=== PATIENT | male | born 1975 | race African-American/Black ===

== ENCOUNTER 2017-05-23 21:53 | Observation (INO) | payer MEDICAID, OTHER ==
[2017-05-23] MEDS: LORAZEPAM 2 MG INJ IV (22:33)
[2017-05-23 22:37] LABS: ADD MAN DIFF? NO
[2017-05-23 22:38] LABS: WHITE BLOOD COUNT 5.7 10^3/ul (4.8-10.8)
[2017-05-23 22:38] LABS: BASOPHILS % 0.7 % (0.0-2.0); EOSINOPHILS % 0.4 % (0.0-7.0); HEMATOCRIT 45.1 % (42.0-52.0); HEMOGLOBIN 15.1 g/dl (14.0-18.0); LYMPHOCYTES # 1.2 10^3/ul (0.8-2.9); LYMPHOCYTES % 21.7 % (15.0-51.0); MEAN CORPUSCULAR HEMOGLOBIN 27.9 pg (29.0-33.0); MEAN CORPUSCULAR HGB CONC 33.5 g/dl (32.0-37.0); MEAN CORPUSCULAR VOLUME 83.4 fl (82.0-101.0); MONOCYTE # 0.5 10^3/ul (0.3-0.9); MONOCYTES % 8.4 % (0.0-11.0); NEUTROPHIL # 3.9 10^3/ul (1.6-7.5); NEUTROPHILS % 68.4 % (39.0-77.0); PLATELET COUNT 353 10^3/UL (140-415); RED BLOOD COUNT 5.41 10^6/ul (4.70-6.10); RED CELL DISTRIBUTION WIDTH 14.6 % (11.5-14.5)
[2017-05-23 22:55] LABS: ANION GAP 20 (8-16); BLOOD UREA NITROGEN 15 mg/dl (7-20); CALCIUM 9.4 mg/dl (8.4-10.2); CARBON DIOXIDE 22 mmol/L (21-31); CHLORIDE 101 mmol/L (97-110); CREATININE 1.03 mg/dl (0.61-1.24); GLUCOSE 258 mg/dl (70-220); POTASSIUM 4.6 mmol/L (3.5-5.1); SODIUM 138 mmol/L (135-144)
[2017-05-23] MEDS: morphine 10 MG INJ IV (23:00)
[2017-05-23 23:07] LABS: TROPONIN-I 0.036 ng/ml (0.00-0.12)
[2017-05-24] MEDS: LORAZEPAM 2 MG INJ IV ×3 (00:24→12:40)
[2017-05-24] MEDS: SOD CHLORIDE 0.9% 1,000 ML IV ×2 (00:24→04:12)
[2017-05-24] MEDS: ASPIRIN 81 MG TAB PO (01:14)
[2017-05-24] MEDS: OXYCODONE/ACETAMINOPHEN (5/325) TAB PO (01:14)
[2017-05-24] MEDS ORDERED: ONDANSETRON 4 MG INJ IV ×2 (01:30→02:00)
[2017-05-24] MEDS ORDERED: BISACODYL (EC) 5 MG TAB PO (01:30)
[2017-05-24] MEDS ORDERED: NACL 0.9% 3 ML SYG IV (01:30)
[2017-05-24] MEDS ORDERED: ACETAMINOPHEN 325 MG TAB PO ×2 (01:30→02:00)
[2017-05-24] MEDS ORDERED: NITROGLYCERIN (SL) 0.4 MG TAB SL (01:30)
[2017-05-24] MEDS ORDERED: DOCUSATE SODIUM 100 MG CAP PO (01:30)
[2017-05-24] MEDS ORDERED: morphine 2 MG INJ IV (01:30)
[2017-05-24 02:26] LABS: BARBITURATES Negative (NEGATIVE); CANNABINOIDS Positive (NEGATIVE); OPIATES Negative (NEGATIVE)
[2017-05-24 02:32] LABS: BENZODIAZEPINES Positive (NEGATIVE); COCAINE Negative (NEGATIVE)
[2017-05-24 02:37] LABS: AMPHETAMINE/METHAMPHETAMINE POSITIVE (NEGATIVE)
[2017-05-24] MEDS ORDERED: HYDROCODONE/APAP (5/325) TAB PO (05:00)
[2017-05-24] MEDS: HYDROmorphONE 0.5 MG/0.5 ML SYG IV (05:42)
[2017-05-24 05:52] LABS: ADD MAN DIFF? NO
[2017-05-24 06:00] LABS: WHITE BLOOD COUNT 4.5 10^3/ul (4.8-10.8)
[2017-05-24 06:00] LABS: BASOPHILS % 0.7 % (0.0-2.0); EOSINOPHILS % 0.7 % (0.0-7.0); HEMATOCRIT 40.6 % (42.0-52.0); HEMOGLOBIN 13.1 g/dl (14.0-18.0); LYMPHOCYTES # 1.6 10^3/ul (0.8-2.9); LYMPHOCYTES % 36.2 % (15.0-51.0); MEAN CORPUSCULAR HEMOGLOBIN 27.2 pg (29.0-33.0); MEAN CORPUSCULAR HGB CONC 32.3 g/dl (32.0-37.0); MEAN CORPUSCULAR VOLUME 84.2 fl (82.0-101.0); MEAN PLATELET VOLUME 12.6 fl (7.4-10.4); MONOCYTE # 0.5 10^3/ul (0.3-0.9); MONOCYTES % 10.9 % (0.0-11.0); NEUTROPHIL # 2.3 10^3/ul (1.6-7.5); NEUTROPHILS % 51.5 % (39.0-77.0); PLATELET COUNT 259 10^3/UL (140-415); RED BLOOD COUNT 4.82 10^6/ul (4.70-6.10); RED CELL DISTRIBUTION WIDTH 14.3 % (11.5-14.5)
[2017-05-24 06:18] LABS: ALANINE AMINOTRANSFERASE 17 IU/L (13-69); ALBUMIN 4.4 g/dl (3.3-4.9); ALBUMIN/GLOBULIN RATIO 1.33; ALKALINE PHOSPHATASE 56 IU/L (42-121); ANION GAP 19 (8-16); ASPARTATE AMINO TRANSFERASE 34 IU/L (15-46); BILIRUBIN,INDIRECT 0.6 mg/dl (0-1.1); BILIRUBIN,TOTAL 0.6 mg/dl (0.2-1.3); BLOOD UREA NITROGEN 14 mg/dl (7-20); CARBON DIOXIDE 24 mmol/L (21-31); CHLORIDE 105 mmol/L (97-110); CREATINE KINASE 187 IU/L (23-200); CREATININE 0.74 mg/dl (0.61-1.24); GLUCOSE 210 mg/dl (70-220); MAGNESIUM 1.7 mg/dl (1.7-2.5); POTASSIUM 4.7 mmol/L (3.5-5.1); SODIUM 143 mmol/L (135-144); TOTAL PROTEIN 7.7 g/dl (6.1-8.1)
[2017-05-24 06:29] LABS: CK INDEX 0.6; TROPONIN-I 0.023 ng/ml (0.00-0.12)
[2017-05-24 06:30] LABS: CK-MB 1.09 ng/ml (0.0-2.4)
[2017-05-24] MEDS: DILTIAZEM 25 MG INJ IV (07:25)
[2017-05-24 08:08] LABS: HEMOGLOBIN A1C 8.2 % (0-5.9)
[2017-05-24] MEDS: HYDROmorphONE 2 MG TAB PO (11:30)
[2017-05-24] MEDS: oxyCODONE (CR) 10 MG TAB [oxyCONTIN] PO (11:30)
[2017-05-24 12:42] LABS: CREATINE KINASE 234 IU/L (23-200)
[2017-05-24 12:53] LABS: CK INDEX 0.7; TROPONIN-I 0.014 ng/ml (0.00-0.12)
[2017-05-24 12:57] LABS: CK-MB 1.75 ng/ml (0.0-2.4)
[2017-05-24] MEDS ORDERED: GLUCOSE GEL 15 GRAM TUBE BUCCAL (14:30)
[2017-05-24] MEDS ORDERED: GLUCAGON 1 MG INJ IM (14:30)
[2017-05-24] MEDS ORDERED: GLUCOSE GEL 15 GRAM TUBE PO ×2 (14:30)
[2017-05-24] MEDS ORDERED: DEXTROSE 50% 50 ML SYRINGE IV ×2 (14:30)
[2017-05-24] MEDS ORDERED: INSULIN ASPART [NOVOLOG] 3 ML PEN SC ×2 (17:55)
[2017-05-24] MEDS ORDERED: INSULIN GLARGINE [LANtus] 3 ML PEN SC ×2 (20:00)
[2017-05-24] MEDS ORDERED: oxyCODONE (CR) 80 MG TAB [oxyCONTIN] PO (21:00)
[2017-05-24] MEDS ORDERED: DIAZEPAM 5 MG TAB PO (21:00)
[2017-05-24] MEDS ORDERED: PANTOPRAZOLE (EC) 40 MG TAB PO (21:00)
[2017-05-24] MEDS ORDERED: NON-FORMULARY/PATIENT OWN MED (Esomeprazole Mag Trihydrate (Nexium) 20 MG) PO (21:00)
[2017-05-25] MEDS ORDERED: ACCU-CHEK XX (02:00)
[2017-05-25] MEDS ORDERED: NIFEdipine (XL) 60 MG TAB PO (09:00)
[2017-05-25] MEDS ORDERED: NICOTINE (7 MG/24 HR) PATCH TRANSDERM (09:00)
== END 2017-05-24 15:20 | disposition left against medical advice (07) ==
LOC: E/R 21:53 → TEL 05-24 01:53
DX: R07.9 Chest pain, unspecified (principal); R00.0 Tachycardia, unspecified; F19.10 Other psychoactive substance abuse, uncomplicated; G89.29 Other chronic pain; M54.5 Low back pain; E11.9 Type 2 diabetes mellitus without complications; F41.9 Anxiety disorder, unspecified; I10 Essential (primary) hypertension; Z72.0 Tobacco use
CPT/HCPCS: 36415; 71045; 80048; 80053; 80307; 82550; 82553; 83036; 83735; 84443; 84484; 85025; 93005; 93306; 96374; 96375; 96376; 99291-25; G0378

== ENCOUNTER 2017-05-25 05:02 | Inpatient (IN) | payer MEDICAID ==
[2017-05-25 06:08] LABS: ADD MAN DIFF? NO
[2017-05-25 06:16] LABS: HEMATOCRIT 37.7 % (42.0-52.0); HEMOGLOBIN 12.5 g/dl (14.0-18.0); LYMPHOCYTES % 25.3 % (15.0-51.0); MEAN CORPUSCULAR HEMOGLOBIN 27.7 pg (29.0-33.0); MEAN CORPUSCULAR HGB CONC 33.2 g/dl (32.0-37.0); MEAN CORPUSCULAR VOLUME 83.6 fl (82.0-101.0); MONOCYTE # 0.5 10^3/ul (0.3-0.9); MONOCYTES % 11.9 % (0.0-11.0); NEUTROPHIL # 2.3 10^3/ul (1.6-7.5); NEUTROPHILS % 60.5 % (39.0-77.0); NUCLEATED RED BLOOD CELLS # 0.1 10^3/ul (0.0-0.0); NUCLEATED RED BLOOD CELLS% 1.8 /100WBC (0.0-0.0); PLATELET COUNT 238 10^3/UL (140-415); RED BLOOD COUNT 4.51 10^6/ul (4.70-6.10); RED CELL DISTRIBUTION WIDTH 14.3 % (11.5-14.5)
[2017-05-25 06:16] LABS: WHITE BLOOD COUNT 3.9 10^3/ul (4.8-10.8)
[2017-05-25 06:36] LABS: ANION GAP 21 (8-16); BLOOD UREA NITROGEN 18 mg/dl (7-20); CALCIUM 9.2 mg/dl (8.4-10.2); CARBON DIOXIDE 24 mmol/L (21-31); CHLORIDE 104 mmol/L (97-110); CREATININE 0.83 mg/dl (0.61-1.24); GLUCOSE 185 mg/dl (70-220); POTASSIUM 3.8 mmol/L (3.5-5.1); SODIUM 145 mmol/L (135-144)
[2017-05-25 06:45] LABS: TROPONIN-I 0.035 ng/ml (0.00-0.12)
[2017-05-25] MEDS: NITROGLYCERIN 2% 1 GM OINT PKT TD (06:51)
[2017-05-25] MEDS: ASPIRIN 325 MG TAB PO (06:51)
[2017-05-25] MEDS: NICARDipine HCL 30 MG CAPSULE PO (06:51)
[2017-05-25] MEDS ORDERED: ACETAMINOPHEN 325 MG TAB PO (10:00)
[2017-05-25] MEDS ORDERED: ONDANSETRON 4 MG INJ IV ×2 (10:00→11:00)
[2017-05-25] MEDS: SOD CHLORIDE 0.9% 1,000 ML IV (10:32)
[2017-05-25] MEDS: ONDANSETRON 4 MG INJ IV (10:32)
[2017-05-25] MEDS: HYDROmorphONE 0.5 MG/0.5 ML SYG IV ×4 (10:33→22:51)
[2017-05-25] MEDS: LABETALOL HCL 20MG INJ IV (11:00)
[2017-05-25] MEDS ORDERED: NACL 0.9% 3 ML SYG IV (11:00)
[2017-05-25] MEDS: HYPOGLYCEMIA PROTOCOL when Glucose is <70 mg/dL or symptomatic <90 mg/dL. XX (11:00)
[2017-05-25] MEDS: Discontinue current oral sulfonylureas (glyburide, glipizide, and/or glimepiride) prior to XX (11:00)
[2017-05-25] MEDS ORDERED: LABETALOL HCL 20MG INJ IV (11:00)
[2017-05-25] MEDS: INSULIN ASPART [NOVOLOG] 3 ML PEN SC ×5 (12:22→21:34)
[2017-05-25 12:28] LABS: CREATINE KINASE 739 IU/L (23-200)
[2017-05-25] MEDS ORDERED: DEXTROSE 50% 50 ML SYRINGE IV ×2 (12:30)
[2017-05-25] MEDS ORDERED: GLUCOSE GEL 15 GRAM TUBE PO ×2 (12:30)
[2017-05-25] MEDS ORDERED: GLUCOSE GEL 15 GRAM TUBE BUCCAL (12:30)
[2017-05-25] MEDS ORDERED: GLUCAGON 1 MG INJ IM (12:30)
[2017-05-25] MEDS: DIAZEPAM 5 MG TAB PO ×2 (12:42→22:27)
[2017-05-25 12:43] LABS: CK INDEX 0.5; TROPONIN-I 0.022 ng/ml (0.00-0.12)
[2017-05-25 12:46] LABS: CK-MB 3.59 ng/ml (0.0-2.4)
[2017-05-25] MEDS ORDERED: KETOROLAC 30 MG INJ IV (17:00)
[2017-05-25 19:57] LABS: CREATINE KINASE 553 IU/L (23-200)
[2017-05-25 20:09] LABS: CK INDEX 0.5; TROPONIN-I 0.017 ng/ml (0.00-0.12)
[2017-05-25 20:19] LABS: CK-MB 2.81 ng/ml (0.0-2.4)
[2017-05-25] MEDS: NON-FORMULARY/PATIENT OWN MED (Esomeprazole Mag Trihydrate (Nexium) 20 MG) XX (21:00)
[2017-05-25] MEDS: INSULIN GLARGINE [LANtus] 3 ML PEN SC (21:28)
[2017-05-26] MEDS: HYDROmorphONE 0.5 MG/0.5 ML SYG IV ×7 (00:15→21:33)
[2017-05-26] MEDS: ACCU-CHEK XX (02:00)
[2017-05-26] MEDS: INSULIN ASPART [NOVOLOG] 3 ML PEN SC ×7 (08:30→20:55)
[2017-05-26] MEDS: NON-FORMULARY/PATIENT OWN MED (Esomeprazole Mag Trihydrate (Nexium) 20 MG) XX ×2 (08:32→21:00)
[2017-05-26] MEDS: NICOTINE (7 MG/24 HR) PATCH TRANSDERM (08:49)
[2017-05-26] MEDS: DIAZEPAM 5 MG TAB PO ×3 (10:40→20:44)
[2017-05-26 14:36] LABS: ADD MAN DIFF? NO
[2017-05-26 14:38] LABS: BASOPHILS % 1.1 % (0.0-2.0); EOSINOPHILS # 0.2 10^3/ul (0.0-0.5); EOSINOPHILS % 4.7 % (0.0-7.0); HEMATOCRIT 36.5 % (42.0-52.0); HEMOGLOBIN 11.9 g/dl (14.0-18.0); LYMPHOCYTES # 1.4 10^3/ul (0.8-2.9); LYMPHOCYTES % 39.1 % (15.0-51.0); MEAN CORPUSCULAR HEMOGLOBIN 28.1 pg (29.0-33.0); MEAN CORPUSCULAR HGB CONC 32.6 g/dl (32.0-37.0); MEAN CORPUSCULAR VOLUME 86.1 fl (82.0-101.0); MEAN PLATELET VOLUME 11.4 fl (7.4-10.4); MONOCYTE # 0.3 10^3/ul (0.3-0.9); NEUTROPHIL # 1.7 10^3/ul (1.6-7.5); NEUTROPHILS % 47.1 % (39.0-77.0); PLATELET COUNT 193 10^3/UL (140-415); RED BLOOD COUNT 4.24 10^6/ul (4.70-6.10)
[2017-05-26 14:38] LABS: WHITE BLOOD COUNT 3.6 10^3/ul (4.8-10.8)
[2017-05-26 14:47] LABS: HEMOGLOBIN A1C 8.1 % (0-5.9)
[2017-05-26 14:57] LABS: ALANINE AMINOTRANSFERASE 35 IU/L (13-69); ALBUMIN 3.8 g/dl (3.3-4.9); ALKALINE PHOSPHATASE 50 IU/L (42-121); ANION GAP 15 (8-16); ASPARTATE AMINO TRANSFERASE 22 IU/L (15-46); BILIRUBIN,INDIRECT 0.4 mg/dl (0-1.1); BILIRUBIN,TOTAL 0.4 mg/dl (0.2-1.3); BLOOD UREA NITROGEN 16 mg/dl (7-20); CALCIUM 8.9 mg/dl (8.4-10.2); CARBON DIOXIDE 29 mmol/L (21-31); CHLORIDE 104 mmol/L (97-110); CHOLESTEROL 183 mg/dl (100-200); GLUCOSE 111 mg/dl (70-220); HDL CHOLESTEROL 36 mg/dl (27-67); LDL CHOLESTEROL,CALCULATED 133 mg/dl; MAGNESIUM 1.7 mg/dl (1.7-2.5); PHOSPHORUS 5.3 mg/dl (2.5-4.9); POTASSIUM 3.8 mmol/L (3.5-5.1); SODIUM 144 mmol/L (135-144); TOTAL PROTEIN 6.5 g/dl (6.1-8.1); TRIGLYCERIDES 69 mg/dl (0-149)
[2017-05-26] MEDS ORDERED: LOSARTAN 25 MG TAB PO (15:00)
[2017-05-26 15:14] LABS: FREE THYROXINE INDEX (Calc) 3.22 ug/ml (0.65-3.89); T3 UPTAKE 43.5 % (23.5-40.5); T4 (THYROXINE) 7.4 ug/dl (5.5-11.0)
[2017-05-26] MEDS: oxyCODONE (CR) 10 MG TAB [oxyCONTIN] PO (15:22)
[2017-05-26 15:28] LABS: THYROID STIMULATING HORMONE 0.188 MIU/L (0.465-4.680)
[2017-05-26] MEDS: REGADENOSON 0.4 MG/5 ML SYG (16:40)
[2017-05-26] MEDS: NIFEdipine (XL) 60 MG TAB PO (17:00)
[2017-05-26] MEDS: INSULIN GLARGINE [LANtus] 3 ML PEN SC (20:54)
[2017-05-27] MEDS: HYDROmorphONE 0.5 MG/0.5 ML SYG IV ×6 (01:43→23:50)
[2017-05-27] MEDS: ACCU-CHEK XX (02:00)
[2017-05-27] MEDS: INSULIN ASPART [NOVOLOG] 3 ML PEN SC ×7 (07:56→21:00)
[2017-05-27] MEDS: NIFEdipine (XL) 60 MG TAB PO (09:00)
[2017-05-27] MEDS: NON-FORMULARY/PATIENT OWN MED (Esomeprazole Mag Trihydrate (Nexium) 20 MG) XX ×2 (09:00→21:00)
[2017-05-27] MEDS: ASPIRIN 81 MG TAB PO (09:05)
[2017-05-27] MEDS: oxyCODONE (CR) 10 MG TAB [oxyCONTIN] PO ×2 (09:05→21:24)
[2017-05-27] MEDS: DIAZEPAM 5 MG TAB PO ×3 (09:06→21:23)
[2017-05-27] MEDS: NICOTINE (7 MG/24 HR) PATCH TRANSDERM (09:09)
[2017-05-27] MEDS: NIFEDIPINE 60 MG PO (10:42)
[2017-05-27] MEDS: LOSARTAN 50 MG TAB PO (10:42)
[2017-05-27] MEDS ORDERED: INSULIN GLARGINE [LANtus] 3 ML PEN SC (20:00)
[2017-05-28] MEDS: ACCU-CHEK XX (02:00)
[2017-05-28] MEDS: HYDROmorphONE 0.5 MG/0.5 ML SYG IV ×2 (05:15→08:50)
[2017-05-28] MEDS: DIAZEPAM 5 MG TAB PO ×3 (08:47→20:54)
[2017-05-28] MEDS: ASPIRIN 81 MG TAB PO (08:47)
[2017-05-28] MEDS: NIFEDIPINE 60 MG PO (08:48)
[2017-05-28] MEDS: NICOTINE (7 MG/24 HR) PATCH TRANSDERM (08:48)
[2017-05-28] MEDS: LOSARTAN 50 MG TAB PO ×2 (08:48→20:53)
[2017-05-28] MEDS: oxyCODONE (CR) 10 MG TAB [oxyCONTIN] PO ×3 (08:49→20:57)
[2017-05-28] MEDS: NON-FORMULARY/PATIENT OWN MED (Esomeprazole Mag Trihydrate (Nexium) 20 MG) XX ×2 (08:50→23:19)
[2017-05-28] MEDS: INSULIN ASPART [NOVOLOG] 3 ML PEN SC ×7 (09:10→20:57)
[2017-05-28] MEDS: HYDROmorphONE 2 MG TAB PO ×3 (13:11→22:18)
[2017-05-28] MEDS: ENOXAPARIN 40 MG/0.4 ML SYG SC (13:14)
[2017-05-29] MEDS: HYDROmorphONE 2 MG TAB PO ×4 (02:03→17:32)
[2017-05-29] MEDS: ACCU-CHEK XX (02:07)
[2017-05-29] MEDS: INSULIN ASPART [NOVOLOG] 3 ML PEN SC ×9 (03:55→20:50)
[2017-05-29] MEDS: INSULIN GLARGINE [LANtus] 3 ML PEN SC ×2 (08:00→20:44)
[2017-05-29] MEDS: NON-FORMULARY/PATIENT OWN MED (Esomeprazole Mag Trihydrate (Nexium) 20 MG) XX (09:00)
[2017-05-29] MEDS: LOSARTAN 50 MG TAB PO ×2 (09:35→20:38)
[2017-05-29] MEDS: DIAZEPAM 5 MG TAB PO ×3 (09:35→20:38)
[2017-05-29] MEDS: NIFEDIPINE 60 MG PO (09:36)
[2017-05-29] MEDS: ASPIRIN 81 MG TAB PO (09:36)
[2017-05-29] MEDS: ENOXAPARIN 40 MG/0.4 ML SYG SC (09:38)
[2017-05-29] MEDS: oxyCODONE (CR) 10 MG TAB [oxyCONTIN] PO ×2 (09:44→20:36)
[2017-05-29] MEDS: NICOTINE (7 MG/24 HR) PATCH TRANSDERM (10:38)
[2017-05-29] MEDS ORDERED: INSULIN GLARGINE [LANtus] 3 ML PEN SC (20:00)
[2017-05-29] MEDS: ISOSORBIDE DINITRATE 10 MG TAB PO (21:00)
[2017-05-29] MEDS ORDERED: oxyCODONE (CR) 10 MG TAB [oxyCONTIN] PO (21:00)
[2017-05-30] MEDS: ACCU-CHEK XX (02:00)
[2017-05-30] MEDS: predniSONE 50 MG TAB PO ×4 (03:20→14:15)
[2017-05-30] MEDS: ACETAMINOPHEN 325 MG TAB PO ×2 (03:21→04:40)
[2017-05-30] MEDS: SOD CHLORIDE 0.9% 1,000 ML IV ×3 (04:40→22:34)
[2017-05-30] MEDS: PANTOPRAZOLE (EC) 40 MG TAB PO (05:04)
[2017-05-30] MEDS: NICOTINE (7 MG/24 HR) PATCH TRANSDERM (08:20)
[2017-05-30] MEDS: HYDROmorphONE 2 MG TAB PO ×4 (08:21→20:58)
[2017-05-30] MEDS: ISOSORBIDE DINITRATE 10 MG TAB PO ×4 (08:21→20:31)
[2017-05-30] MEDS: NIFEDIPINE 60 MG PO (08:22)
[2017-05-30] MEDS: ASPIRIN 81 MG TAB PO (08:22)
[2017-05-30] MEDS: LOSARTAN 50 MG TAB PO ×2 (08:22→20:31)
[2017-05-30] MEDS: DIAZEPAM 5 MG TAB PO ×3 (08:22→20:31)
[2017-05-30] MEDS: ENOXAPARIN 40 MG/0.4 ML SYG SC (08:28)
[2017-05-30] MEDS: oxyCODONE (CR) 10 MG TAB [oxyCONTIN] PO ×2 (10:03→20:28)
[2017-05-30] MEDS: INSULIN ASPART [NOVOLOG] 3 ML PEN SC ×9 (10:07→22:40)
[2017-05-30] MEDS ORDERED: METOPROLOL 5 MG INJ IV (11:30)
[2017-05-30] MEDS: METOPROLOL 5 MG INJ IV (12:07)
[2017-05-30] MEDS: DIPHENHYDRAMINE 50 MG INJ IV (14:15)
[2017-05-30] MEDS: METOPROLOL 100 MG TAB PO (14:20)
[2017-05-30] MEDS: IOHEXOL 100 ML (14:39)
[2017-05-30] MEDS: IOHEXOL 350MG/ML 50 ML BTL (14:39)
[2017-05-30] MEDS: SOD CHLORIDE 0.9% 100 ML (14:39)
[2017-05-30] MEDS: NITROGLYCERIN AEROSOL (4.9 GM) (15:05)
[2017-05-30] MEDS: INSULIN GLARGINE [LANtus] 3 ML PEN SC (20:29)
[2017-05-30 21:49] LABS: B-TYPE NATRIURETIC PEPTIDE 206 PG/ML (0-125)
[2017-05-30 21:52] LABS: GLUCOSE 544 mg/dl (70-220)
[2017-05-30 22:15] LABS: TROPONIN-I < 0.012 ng/ml (0.00-0.12)
[2017-05-31] MEDS: HYDROmorphONE 2 MG TAB PO (00:58)
[2017-05-31] MEDS: INSULIN ASPART [NOVOLOG] 3 ML PEN SC ×9 (01:06→22:34)
[2017-05-31] MEDS: ACCU-CHEK XX (02:25)
[2017-05-31] MEDS ORDERED: VANCOMYCIN IV PER PHARMACY XX (04:00)
[2017-05-31] MEDS: SOD CHLORIDE 0.9% 1,000 ML IV ×3 (04:04→23:30)
[2017-05-31] MEDS: PANTOPRAZOLE (EC) 40 MG TAB PO (05:06)
[2017-05-31] MEDS: VANCOMYCIN 1.75 GM in SOD CHLORIDE 0.9% 500 ML IVPB (05:07)
[2017-05-31 07:35] LABS: ADD MAN DIFF? NO
[2017-05-31 07:47] LABS: BASOPHILS % 0.1 % (0.0-2.0); EOSINOPHILS % 0.2 % (0.0-7.0); HEMATOCRIT 31.2 % (42.0-52.0); HEMOGLOBIN 10.5 g/dl (14.0-18.0); LYMPHOCYTES # 0.7 10^3/ul (0.8-2.9); LYMPHOCYTES % 8.1 % (15.0-51.0); MEAN CORPUSCULAR HEMOGLOBIN 28.5 pg (29.0-33.0); MEAN CORPUSCULAR HGB CONC 33.7 g/dl (32.0-37.0); MEAN CORPUSCULAR VOLUME 84.6 fl (82.0-101.0); MEAN PLATELET VOLUME 11.7 fl (7.4-10.4); MONOCYTE # 0.8 10^3/ul (0.3-0.9); MONOCYTES % 9.4 % (0.0-11.0); NEUTROPHIL # 6.9 10^3/ul (1.6-7.5); NEUTROPHILS % 81.5 % (39.0-77.0); PLATELET COUNT 164 10^3/UL (140-415); RED BLOOD COUNT 3.69 10^6/ul (4.70-6.10)
[2017-05-31 07:47] LABS: WHITE BLOOD COUNT 8.4 10^3/ul (4.8-10.8)
[2017-05-31 07:58] LABS: ANION GAP 17 (8-16); BLOOD UREA NITROGEN 24 mg/dl (7-20); CALCIUM 9.2 mg/dl (8.4-10.2); CARBON DIOXIDE 26 mmol/L (21-31); CHLORIDE 101 mmol/L (97-110); CREATININE 1.01 mg/dl (0.61-1.24); GLUCOSE 385 mg/dl (70-220); POTASSIUM 3.8 mmol/L (3.5-5.1); SODIUM 140 mmol/L (135-144)
[2017-05-31 08:08] LABS: TROPONIN-I < 0.012 ng/ml (0.00-0.12)
[2017-05-31] MEDS: DIAZEPAM 5 MG TAB PO ×3 (08:09→21:24)
[2017-05-31] MEDS: ASPIRIN 81 MG TAB PO (08:10)
[2017-05-31] MEDS: LOSARTAN 50 MG TAB PO ×2 (08:10→21:25)
[2017-05-31] MEDS: oxyCODONE (CR) 10 MG TAB [oxyCONTIN] PO ×2 (08:10→21:24)
[2017-05-31] MEDS: NIFEDIPINE 60 MG PO (08:11)
[2017-05-31] MEDS: ISOSORBIDE DINITRATE 10 MG TAB PO ×4 (08:11→21:25)
[2017-05-31] MEDS: ENOXAPARIN 40 MG/0.4 ML SYG SC (08:16)
[2017-05-31] MEDS: NICOTINE (7 MG/24 HR) PATCH TRANSDERM (08:16)
[2017-05-31 09:43] LABS: IRON 34 ug/dl (35-150)
[2017-05-31 09:53] LABS: % IRON SATURATION 10 % SAT (22-52); TOTAL IRON BINDING CAPACITY 344 ug/dl (241-421)
[2017-05-31] MEDS: OXYCODONE/ACETAMINOPHEN (10/325) TAB PO ×3 (10:06→22:29)
[2017-05-31 13:48] LABS: TROPONIN-I < 0.012 ng/ml (0.00-0.12)
[2017-05-31] MEDS: VANCOMYCIN 1.5 GM in SOD CHLORIDE 0.9% 250 ML IVPB (16:25)
[2017-05-31] MEDS: INSULIN GLARGINE [LANtus] 3 ML PEN SC (21:21)
[2017-05-31 21:51] LABS: TROPONIN-I < 0.012 ng/ml (0.00-0.12)
[2017-05-31] MEDS ORDERED: INSULIN ASP PROT/ASPART (70/30) PEN SC (22:00)
[2017-06-01] MEDS ORDERED: ACCU-CHEK XX (02:00)
[2017-06-01 02:09] LABS: TROPONIN-I < 0.012 ng/ml (0.00-0.12)
[2017-06-01] MEDS: ACCU-CHEK XX (02:27)
[2017-06-01] MEDS: INSULIN ASPART [NOVOLOG] 3 ML PEN SC ×9 (02:48→21:53)
[2017-06-01] MEDS: VANCOMYCIN 1.5 GM in SOD CHLORIDE 0.9% 250 ML IVPB ×2 (03:57→16:43)
[2017-06-01] MEDS: HYDROmorphONE 2 MG TAB PO ×4 (03:58→16:11)
[2017-06-01] MEDS: SOD CHLORIDE 0.9% 500 ML IV (04:21)
[2017-06-01] MEDS: PANTOPRAZOLE (EC) 40 MG TAB PO (05:33)
[2017-06-01] MEDS: SOD CHLORIDE 0.9% 1,000 ML IV (06:19)
[2017-06-01] MEDS: hydrALAzine 20 MG INJ IV (07:52)
[2017-06-01] MEDS: NIFEDIPINE 60 MG PO (07:59)
[2017-06-01] MEDS: LOSARTAN 50 MG TAB PO ×2 (07:59→20:38)
[2017-06-01] MEDS: DIAZEPAM 5 MG TAB PO ×3 (08:03→20:38)
[2017-06-01] MEDS: oxyCODONE (CR) 10 MG TAB [oxyCONTIN] PO (08:03)
[2017-06-01] MEDS: ASPIRIN 81 MG TAB PO (08:59)
[2017-06-01] MEDS: NICOTINE (7 MG/24 HR) PATCH TRANSDERM (09:00)
[2017-06-01] MEDS: ISOSORBIDE DINITRATE 10 MG TAB PO (09:00)
[2017-06-01] MEDS: LINAGLIPTIN 5 MG TABLET PO (09:00)
[2017-06-01] MEDS: ENOXAPARIN 40 MG/0.4 ML SYG SC (09:03)
[2017-06-01] MEDS: HYDROmorphONE 0.5 MG/0.5 ML SYG IV ×3 (13:26→23:56)
[2017-06-01] MEDS: RANOLAZINE (SR) 500 MG TAB PO ×2 (14:00→20:34)
[2017-06-01 15:28] LABS: ADD MAN DIFF? NO
[2017-06-01 15:31] LABS: BASOPHILS % 0.8 % (0.0-2.0); EOSINOPHILS # 0.1 10^3/ul (0.0-0.5); EOSINOPHILS % 3.6 % (0.0-7.0); HEMATOCRIT 33.6 % (42.0-52.0); HEMOGLOBIN 10.9 g/dl (14.0-18.0); LYMPHOCYTES # 1.2 10^3/ul (0.8-2.9); LYMPHOCYTES % 31.3 % (15.0-51.0); MEAN CORPUSCULAR HEMOGLOBIN 27.7 pg (29.0-33.0); MEAN CORPUSCULAR HGB CONC 32.4 g/dl (32.0-37.0); MEAN CORPUSCULAR VOLUME 85.3 fl (82.0-101.0); MEAN PLATELET VOLUME 11.6 fl (7.4-10.4); MONOCYTE # 0.7 10^3/ul (0.3-0.9); MONOCYTES % 17.6 % (0.0-11.0); NEUTROPHIL # 1.8 10^3/ul (1.6-7.5); NEUTROPHILS % 46.4 % (39.0-77.0); PLATELET COUNT 176 10^3/UL (140-415); RED BLOOD COUNT 3.94 10^6/ul (4.70-6.10); RED CELL DISTRIBUTION WIDTH 14.4 % (11.5-14.5)
[2017-06-01 15:31] LABS: WHITE BLOOD COUNT 3.9 10^3/ul (4.8-10.8)
[2017-06-01 15:48] LABS: ANION GAP 17 (8-16); BLOOD UREA NITROGEN 17 mg/dl (7-20); CALCIUM 8.7 mg/dl (8.4-10.2); CARBON DIOXIDE 31 mmol/L (21-31); CHLORIDE 96 mmol/L (97-110); CREATININE 0.99 mg/dl (0.61-1.24); GLUCOSE 220 mg/dl (70-220); POTASSIUM 3.5 mmol/L (3.5-5.1); SODIUM 140 mmol/L (135-144)
[2017-06-01 15:58] LABS: VANCOMYCIN,TROUGH 5.4 ug/ml (10.0-20.0)
[2017-06-01] MEDS: oxyCODONE (CR) 15 MG TAB [oxyCONTIN] PO (20:35)
[2017-06-01] MEDS: INSULIN GLARGINE [LANtus] 3 ML PEN SC (20:47)
[2017-06-01] MEDS: HYDROmorphONE 4 MG TAB PO (21:46)
[2017-06-01] MEDS: VANCOMYCIN 1.25 GM in SOD CHLORIDE 0.9% 250 ML IVPB (23:56)
[2017-06-02] MEDS: INSULIN ASPART [NOVOLOG] 3 ML PEN SC ×8 (01:50→20:24)
[2017-06-02] MEDS: HYDROmorphONE 4 MG TAB PO ×6 (01:50→23:14)
[2017-06-02] MEDS: ACCU-CHEK XX (01:55)
[2017-06-02] MEDS: HYDROmorphONE 0.5 MG/0.5 ML SYG IV ×5 (04:11→20:22)
[2017-06-02 05:31] LABS: ADD MAN DIFF? NO
[2017-06-02 05:36] LABS: WHITE BLOOD COUNT 3.7 10^3/ul (4.8-10.8)
[2017-06-02 05:36] LABS: BASOPHILS % 0.5 % (0.0-2.0); EOSINOPHILS # 0.1 10^3/ul (0.0-0.5); EOSINOPHILS % 3.8 % (0.0-7.0); HEMATOCRIT 31.1 % (42.0-52.0); HEMOGLOBIN 10.2 g/dl (14.0-18.0); LYMPHOCYTES # 1.4 10^3/ul (0.8-2.9); LYMPHOCYTES % 38.1 % (15.0-51.0); MEAN CORPUSCULAR HEMOGLOBIN 28.1 pg (29.0-33.0); MEAN CORPUSCULAR HGB CONC 32.8 g/dl (32.0-37.0); MEAN CORPUSCULAR VOLUME 85.7 fl (82.0-101.0); MEAN PLATELET VOLUME 11.6 fl (7.4-10.4); MONOCYTE # 0.7 10^3/ul (0.3-0.9); MONOCYTES % 18.6 % (0.0-11.0); NEUTROPHIL # 1.4 10^3/ul (1.6-7.5); PLATELET COUNT 169 10^3/UL (140-415); RED BLOOD COUNT 3.63 10^6/ul (4.70-6.10); RED CELL DISTRIBUTION WIDTH 14.3 % (11.5-14.5)
[2017-06-02] MEDS: PANTOPRAZOLE (EC) 40 MG TAB PO (06:20)
[2017-06-02 06:51] LABS: ANION GAP 15 (8-16); BLOOD UREA NITROGEN 25 mg/dl (7-20); CALCIUM 8.8 mg/dl (8.4-10.2); CARBON DIOXIDE 30 mmol/L (21-31); CHLORIDE 97 mmol/L (97-110); CREATININE 0.92 mg/dl (0.61-1.24); GLUCOSE 318 mg/dl (70-220); POTASSIUM 3.4 mmol/L (3.5-5.1); SODIUM 139 mmol/L (135-144)
[2017-06-02 07:38] LABS: ERYTHROCYTE SEDIMENTATION RATE 25 mm/Hr (0-15)
[2017-06-02] MEDS: DIAZEPAM 5 MG TAB PO ×3 (08:13→20:19)
[2017-06-02] MEDS: oxyCODONE (CR) 15 MG TAB [oxyCONTIN] PO ×2 (08:13→21:14)
[2017-06-02] MEDS: ASPIRIN 81 MG TAB PO (08:21)
[2017-06-02] MEDS: DOCUSATE SODIUM 100 MG CAP PO ×2 (08:21→20:20)
[2017-06-02] MEDS: LINAGLIPTIN 5 MG TABLET PO (08:21)
[2017-06-02] MEDS: RANOLAZINE (SR) 500 MG TAB PO ×2 (08:21→20:21)
[2017-06-02] MEDS: NICOTINE (7 MG/24 HR) PATCH TRANSDERM (08:22)
[2017-06-02] MEDS: VANCOMYCIN 1.25 GM in SOD CHLORIDE 0.9% 250 ML IVPB (08:49)
[2017-06-02] MEDS: POLYETHYLENE GLYCOL 17 GM PACKET PO (09:00)
[2017-06-02] MEDS: LOSARTAN 50 MG TAB PO ×2 (09:00→20:19)
[2017-06-02] MEDS: NIFEDIPINE 60 MG PO (10:53)
[2017-06-02] MEDS: ENOXAPARIN 40 MG/0.4 ML SYG SC (10:55)
[2017-06-02] MEDS: CEFTRIAXONE 1 GM/50 ML (PMX) 50 ML IVPB (16:19)
[2017-06-02] MEDS ORDERED: INSULIN ASPART [NOVOLOG] 3 ML PEN SC (17:55)
[2017-06-02] MEDS ORDERED: INSULIN GLARGINE [LANtus] 3 ML PEN SC (20:00)
[2017-06-02] MEDS: INSULIN GLARGINE [LANtus] 3 ML PEN SC (20:25)
[2017-06-03] MEDS: HYDROmorphONE 0.5 MG/0.5 ML SYG IV ×4 (00:11→12:30)
[2017-06-03] MEDS ORDERED: ZOLPIDEM 5 MG TAB PO (00:30)
[2017-06-03] MEDS: ACCU-CHEK XX (01:50)
[2017-06-03] MEDS: INSULIN ASPART [NOVOLOG] 3 ML PEN SC ×8 (02:13→21:00)
[2017-06-03] MEDS: HYDROmorphONE 4 MG TAB PO ×5 (03:16→19:32)
[2017-06-03 05:34] LABS: ADD MAN DIFF? NO
[2017-06-03 05:38] LABS: WHITE BLOOD COUNT 3.9 10^3/ul (4.8-10.8)
[2017-06-03 05:38] LABS: BASOPHILS % 0.8 % (0.0-2.0); EOSINOPHILS # 0.2 10^3/ul (0.0-0.5); EOSINOPHILS % 5.6 % (0.0-7.0); HEMATOCRIT 29.6 % (42.0-52.0); HEMOGLOBIN 9.8 g/dl (14.0-18.0); LYMPHOCYTES # 1.6 10^3/ul (0.8-2.9); LYMPHOCYTES % 40.9 % (15.0-51.0); MEAN CORPUSCULAR HEMOGLOBIN 28.1 pg (29.0-33.0); MEAN CORPUSCULAR HGB CONC 33.1 g/dl (32.0-37.0); MEAN CORPUSCULAR VOLUME 84.8 fl (82.0-101.0); MEAN PLATELET VOLUME 10.9 fl (7.4-10.4); MONOCYTE # 0.6 10^3/ul (0.3-0.9); MONOCYTES % 15.5 % (0.0-11.0); NEUTROPHIL # 1.5 10^3/ul (1.6-7.5); NEUTROPHILS % 36.9 % (39.0-77.0); PLATELET COUNT 167 10^3/UL (140-415); RED BLOOD COUNT 3.49 10^6/ul (4.70-6.10); RED CELL DISTRIBUTION WIDTH 14.2 % (11.5-14.5)
[2017-06-03 06:06] LABS: ANION GAP 14 (8-16); BLOOD UREA NITROGEN 19 mg/dl (7-20); CARBON DIOXIDE 33 mmol/L (21-31); CHLORIDE 96 mmol/L (97-110); CREATININE 0.86 mg/dl (0.61-1.24); GLUCOSE 278 mg/dl (70-220); POTASSIUM 3.6 mmol/L (3.5-5.1); SODIUM 139 mmol/L (135-144)
[2017-06-03 06:54] LABS: HEPATITIS C VIRAL ANTIBODY NEGATIVE (NEGATIVE)
[2017-06-03 06:56] LABS: HIV 1&2 ANTIBODY NEGATIVE (NEGATIVE)
[2017-06-03] MEDS: PANTOPRAZOLE (EC) 40 MG TAB PO (07:01)
[2017-06-03] MEDS: oxyCODONE (CR) 15 MG TAB [oxyCONTIN] PO ×2 (08:24→21:02)
[2017-06-03] MEDS: RANOLAZINE (SR) 500 MG TAB PO ×2 (08:24→21:01)
[2017-06-03] MEDS: DIAZEPAM 5 MG TAB PO ×3 (08:24→21:01)
[2017-06-03] MEDS: DOCUSATE SODIUM 100 MG CAP PO ×2 (08:24→21:01)
[2017-06-03] MEDS: ASPIRIN 81 MG TAB PO (08:24)
[2017-06-03] MEDS: LINAGLIPTIN 5 MG TABLET PO (08:24)
[2017-06-03] MEDS: NICOTINE (7 MG/24 HR) PATCH TRANSDERM (08:31)
[2017-06-03] MEDS: NIFEDIPINE 60 MG PO (08:33)
[2017-06-03] MEDS: ENOXAPARIN 40 MG/0.4 ML SYG SC (08:37)
[2017-06-03] MEDS: LOSARTAN 50 MG TAB PO ×3 (09:00→21:07)
[2017-06-03] MEDS: POLYETHYLENE GLYCOL 17 GM PACKET PO (09:00)
[2017-06-03] MEDS: CEFTRIAXONE 1 GM/50 ML (PMX) 50 ML IVPB (15:36)
[2017-06-03] MEDS ORDERED: oxyCODONE 5 MG TAB PO ×2 (17:00)
[2017-06-03] MEDS: oxyCODONE 15 MG TAB PO ×2 (17:33→23:33)
[2017-06-03] MEDS ORDERED: oxyCODONE (CR) 10 MG TAB [oxyCONTIN] PO (21:00)
[2017-06-03] MEDS: DOXYCYCLINE 100 MG TAB PO (21:01)
[2017-06-03] MEDS: INSULIN GLARGINE [LANtus] 3 ML PEN SC (21:10)
[2017-06-04] MEDS: ACCU-CHEK XX (02:00)
[2017-06-04] MEDS: HYDROmorphONE 4 MG TAB PO ×3 (02:10→10:03)
[2017-06-04] MEDS: HYDROmorphONE 0.5 MG/0.5 ML SYG IV (04:00)
[2017-06-04] MEDS: oxyCODONE 15 MG TAB PO ×5 (05:17→22:29)
[2017-06-04] MEDS: PANTOPRAZOLE (EC) 40 MG TAB PO (05:17)
[2017-06-04 05:22] LABS: ADD MAN DIFF? NO
[2017-06-04 05:30] LABS: BASOPHILS % 0.5 % (0.0-2.0); EOSINOPHILS # 0.2 10^3/ul (0.0-0.5); EOSINOPHILS % 4.8 % (0.0-7.0); HEMATOCRIT 31.2 % (42.0-52.0); HEMOGLOBIN 10.1 g/dl (14.0-18.0); LYMPHOCYTES # 1.5 10^3/ul (0.8-2.9); LYMPHOCYTES % 34.3 % (15.0-51.0); MEAN CORPUSCULAR HEMOGLOBIN 27.6 pg (29.0-33.0); MEAN CORPUSCULAR HGB CONC 32.4 g/dl (32.0-37.0); MEAN CORPUSCULAR VOLUME 85.2 fl (82.0-101.0); MEAN PLATELET VOLUME 11.5 fl (7.4-10.4); MONOCYTE # 0.6 10^3/ul (0.3-0.9); MONOCYTES % 12.5 % (0.0-11.0); NEUTROPHIL # 2.1 10^3/ul (1.6-7.5); NEUTROPHILS % 47.7 % (39.0-77.0); PLATELET COUNT 190 10^3/UL (140-415); RED BLOOD COUNT 3.66 10^6/ul (4.70-6.10); RED CELL DISTRIBUTION WIDTH 14.2 % (11.5-14.5)
[2017-06-04 05:30] LABS: WHITE BLOOD COUNT 4.4 10^3/ul (4.8-10.8)
[2017-06-04] MEDS: oxyCODONE 5 MG TAB PO (05:42)
[2017-06-04 05:52] LABS: ANION GAP 16 (8-16); BLOOD UREA NITROGEN 17 mg/dl (7-20); CALCIUM 9.3 mg/dl (8.4-10.2); CARBON DIOXIDE 30 mmol/L (21-31); CHLORIDE 98 mmol/L (97-110); CREATININE 0.89 mg/dl (0.61-1.24); GLUCOSE 305 mg/dl (70-220); POTASSIUM 4.1 mmol/L (3.5-5.1); SODIUM 140 mmol/L (135-144)
[2017-06-04] MEDS: oxyCODONE (CR) 15 MG TAB [oxyCONTIN] PO ×2 (08:35→20:53)
[2017-06-04] MEDS: DIAZEPAM 5 MG TAB PO ×3 (08:35→20:54)
[2017-06-04] MEDS: DOCUSATE SODIUM 100 MG CAP PO ×2 (08:40→20:54)
[2017-06-04] MEDS: ASPIRIN 81 MG TAB PO (08:40)
[2017-06-04] MEDS: NIFEDIPINE 60 MG PO (08:40)
[2017-06-04] MEDS: LOSARTAN 50 MG TAB PO ×2 (08:41→20:56)
[2017-06-04] MEDS: RANOLAZINE (SR) 500 MG TAB PO ×2 (08:42→20:55)
[2017-06-04] MEDS: POLYETHYLENE GLYCOL 17 GM PACKET PO (08:42)
[2017-06-04] MEDS: DOXYCYCLINE 100 MG TAB PO ×2 (08:42→20:57)
[2017-06-04] MEDS: LINAGLIPTIN 5 MG TABLET PO (08:42)
[2017-06-04] MEDS: ENOXAPARIN 40 MG/0.4 ML SYG SC (08:44)
[2017-06-04] MEDS: INSULIN ASPART [NOVOLOG] 3 ML PEN SC ×7 (08:45→21:00)
[2017-06-04] MEDS: NICOTINE (7 MG/24 HR) PATCH TRANSDERM (08:46)
[2017-06-04] MEDS ORDERED: FUROSEMIDE 40 MG INJ IV (14:30)
[2017-06-04] MEDS ORDERED: HYDROmorphONE 2 MG TAB PO (14:30)
[2017-06-04] MEDS: CEFTRIAXONE 1 GM/50 ML (PMX) 50 ML IVPB (15:05)
[2017-06-04] MEDS: FUROSEMIDE 20 MG INJ IV (15:06)
[2017-06-04] MEDS: FUROSEMIDE 20 MG TAB PO (20:56)
[2017-06-04] MEDS: ZYVOX 600 MG TAB PO (20:56)
[2017-06-04] MEDS: QUETIAPINE 25 MG TAB PO (20:57)
[2017-06-04] MEDS: INSULIN GLARGINE [LANtus] 3 ML PEN SC (21:36)
[2017-06-05] MEDS: ACCU-CHEK XX (02:00)
[2017-06-05] MEDS: oxyCODONE 15 MG TAB PO ×3 (02:39→11:10)
[2017-06-05] MEDS: PANTOPRAZOLE (EC) 40 MG TAB PO (06:37)
[2017-06-05] MEDS: INSULIN ASPART [NOVOLOG] 3 ML PEN SC ×2 (07:50→09:43)
[2017-06-05] MEDS: POLYETHYLENE GLYCOL 17 GM PACKET PO (09:00)
[2017-06-05] MEDS: ENOXAPARIN 40 MG/0.4 ML SYG SC (09:00)
[2017-06-05] MEDS: NIFEDIPINE 60 MG PO (09:15)
[2017-06-05] MEDS: FUROSEMIDE 20 MG TAB PO (09:23)
[2017-06-05] MEDS: LOSARTAN 50 MG TAB PO (09:24)
[2017-06-05] MEDS: LINAGLIPTIN 5 MG TABLET PO (09:24)
[2017-06-05] MEDS: ASPIRIN 81 MG TAB PO (09:25)
[2017-06-05] MEDS: DIAZEPAM 5 MG TAB PO (09:25)
[2017-06-05] MEDS: ZYVOX 600 MG TAB PO (09:25)
[2017-06-05] MEDS: RANOLAZINE (SR) 500 MG TAB PO (09:25)
[2017-06-05] MEDS: DOXYCYCLINE 100 MG TAB PO (09:25)
[2017-06-05] MEDS: oxyCODONE (CR) 15 MG TAB [oxyCONTIN] PO (09:28)
[2017-06-05] MEDS: DOCUSATE SODIUM 100 MG CAP PO (09:29)
[2017-06-05] MEDS: NICOTINE (7 MG/24 HR) PATCH TRANSDERM (09:30)
== END 2017-06-05 11:45 | disposition home or self-care (01) | DRG 315 ==
LOC: E/R 05:02 → MS1 05-31 13:09 → MS3 09:32 → MS4 23:13
DX: I42.9 Cardiomyopathy, unspecified (principal); R78.81 Bacteremia; I50.22 Chronic systolic (congestive) heart failure; E11.65 Type 2 diabetes mellitus with hyperglycemia; F15.10 Other stimulant abuse, uncomplicated; I11.0 Hypertensive heart disease with heart failure; G89.29 Other chronic pain; M54.9 Dorsalgia, unspecified; R00.0 Tachycardia, unspecified; D64.9 Anemia, unspecified; A49.01 Methicillin susceptible Staphylococcus aureus infection, unspecified site; M79.89 Other specified soft tissue disorders; F11.10 Opioid abuse, uncomplicated; Z79.891 Long term (current) use of opiate analgesic; Z79.4 Long term (current) use of insulin
CPT/HCPCS: 36415; 71045; 72100; 72148; 75574; 78452; 80048; 80053; 80061; 80202; 80307; 82550; 82553; 82947; 82962; 83036; 83540; 83735; 83880; 84100; 84436; 84443; 84479; 84484; 85025; 85651; 86703; 86803; 87040; 87086; 93005; 93017; 93308; 93970; 93971; 96372; 96374; 96375; 96376; 97161; 99285-25; G0378

== ENCOUNTER 2017-07-15 00:46 | Emergency (ER) | payer MEDICAID ==
[2017-07-15] MEDS: HYDROmorphONE 0.5 MG/0.5 ML SYG IV ×2 (02:43→06:20)
[2017-07-15] MEDS: ONDANSETRON 4 MG INJ IV (02:43)
[2017-07-15 03:10] LABS: ADD MAN DIFF? NO
[2017-07-15 03:13] LABS: BASOPHILS % 0.7 % (0.0-2.0); EOSINOPHILS # 0.1 10^3/ul (0.0-0.5); EOSINOPHILS % 2.2 % (0.0-7.0); HEMATOCRIT 35.8 % (42.0-52.0); HEMOGLOBIN 11.3 g/dl (14.0-18.0); LYMPHOCYTES # 1.9 10^3/ul (0.8-2.9); LYMPHOCYTES % 45.9 % (15.0-51.0); MEAN CORPUSCULAR HEMOGLOBIN 28.1 pg (29.0-33.0); MEAN CORPUSCULAR HGB CONC 31.6 g/dl (32.0-37.0); MEAN CORPUSCULAR VOLUME 89.1 fl (82.0-101.0); MEAN PLATELET VOLUME 11.1 fl (7.4-10.4); MONOCYTE # 0.4 10^3/ul (0.3-0.9); MONOCYTES % 8.6 % (0.0-11.0); NEUTROPHIL # 1.7 10^3/ul (1.6-7.5); NEUTROPHILS % 42.6 % (39.0-77.0); PLATELET COUNT 270 10^3/UL (140-415); RED BLOOD COUNT 4.02 10^6/ul (4.70-6.10); RED CELL DISTRIBUTION WIDTH 14.4 % (11.5-14.5)
[2017-07-15 03:13] LABS: WHITE BLOOD COUNT 4.1 10^3/ul (4.8-10.8)
[2017-07-15 03:20] LABS: ADD UMIC YES; UR ASCORBIC ACID 40 mg/dL (NEGATIVE); UR BILIRUBIN (Dip) NEGATIVE (NEGATIVE); UR BLOOD (Dip) NEGATIVE (NEGATIVE); UR CLARITY CLEAR (CLEAR); UR COLOR YELLOW (YELLOW); UR GLUCOSE (Dip) 1+ mg/dL (NEGATIVE); UR KETONES (Dip) NEGATIVE (NEGATIVE); UR LEUKOCYTE ESTERASE (Dip) NEGATIVE Leu/ul (NEGATIVE); UR MUCUS FEW /HPF (NONE SEEN); UR NITRITE (Dip) NEGATIVE (NEGATIVE); UR RBC 1 /HPF (0-5); UR SPECIFIC GRAVITY (Dip) 1.023 (1.003-1.030); UR TOTAL PROTEIN (Dip) 2+ mg/dl (NEGATIVE); UR UROBILINOGEN (Dip) 1+ mg/dL (NEGATIVE); UR WBC 0 /HPF (0-5)
[2017-07-15 03:35] LABS: ALANINE AMINOTRANSFERASE 23 IU/L (13-69); ALBUMIN/GLOBULIN RATIO 1.29; ALKALINE PHOSPHATASE 59 IU/L (42-121); ANION GAP 13 (8-16); ASPARTATE AMINO TRANSFERASE 19 IU/L (15-46); BILIRUBIN,INDIRECT 0.3 mg/dl (0-1.1); BILIRUBIN,TOTAL 0.3 mg/dl (0.2-1.3); BLOOD UREA NITROGEN 11 mg/dl (7-20); CALCIUM 8.2 mg/dl (8.4-10.2); CARBON DIOXIDE 31 mmol/L (21-31); CHLORIDE 106 mmol/L (97-110); CREATININE 0.79 mg/dl (0.61-1.24); GLUCOSE 184 mg/dl (70-220); LIPASE 73 U/L (23-300); POTASSIUM 3.5 mmol/L (3.5-5.1); SODIUM 146 mmol/L (135-144); TOTAL PROTEIN 7.1 g/dl (6.1-8.1)
[2017-07-15 03:55] LABS: TROPONIN-I < 0.012 ng/ml (0.00-0.12)
== END 2017-07-15 07:42 | disposition home or self-care (01) ==
LOC: E/R 00:46
DX: R10.13 Epigastric pain (principal); R40.2142 Coma scale, eyes open, spontaneous, at arrival to emergency department; R40.2252 Coma scale, best verbal response, oriented, at arrival to emergency department; R40.2362 Coma scale, best motor response, obeys commands, at arrival to emergency department; I10 Essential (primary) hypertension; Z79.4 Long term (current) use of insulin
CPT/HCPCS: 36415; 71045; 74176; 80053; 81001; 83690; 84484; 85025; 93005; 96374; 96375; 96376; 99285-25

== ENCOUNTER 2017-08-22 09:00 | Emergency (ER) | payer MEDICAID ==
[2017-08-22] MEDS: ONDANSETRON 4 MG INJ IV (10:27)
[2017-08-22] MEDS: SOD CHLORIDE 0.9% 1,000 ML IV ×2 (10:27→12:02)
[2017-08-22] MEDS: HYDROmorphONE 1 MG/ML SYG IV (10:27)
[2017-08-22 10:32] LABS: ADD MAN DIFF? NO
[2017-08-22 10:37] LABS: EOSINOPHILS % 1.4 % (0.0-7.0); HEMATOCRIT 36.6 % (42.0-52.0); HEMOGLOBIN 11.6 g/dl (14.0-18.0); LYMPHOCYTES % 32.9 % (15.0-51.0); MEAN CORPUSCULAR HEMOGLOBIN 27.5 pg (29.0-33.0); MEAN CORPUSCULAR HGB CONC 31.7 g/dl (32.0-37.0); MEAN CORPUSCULAR VOLUME 86.7 fl (82.0-101.0); MEAN PLATELET VOLUME 11.2 fl (7.4-10.4); MONOCYTE # 0.3 10^3/ul (0.3-0.9); MONOCYTES % 9.3 % (0.0-11.0); NEUTROPHIL # 1.6 10^3/ul (1.6-7.5); NEUTROPHILS % 55.4 % (39.0-77.0); PLATELET COUNT 247 10^3/UL (140-415); RED BLOOD COUNT 4.22 10^6/ul (4.70-6.10); RED CELL DISTRIBUTION WIDTH 14.6 % (11.5-14.5)
[2017-08-22 10:37] LABS: WHITE BLOOD COUNT 2.9 10^3/ul (4.8-10.8)
[2017-08-22 10:55] LABS: INR 0.98; PROTIME 13.1 Sec (11.9-14.9)
[2017-08-22 10:56] LABS: PARTIAL THROMBOPLASTIN TIME 25.4 Sec (25.0-35.0)
[2017-08-22 10:58] LABS: ALANINE AMINOTRANSFERASE 29 IU/L (13-69); ALBUMIN 4.2 g/dl (3.3-4.9); ALBUMIN/GLOBULIN RATIO 1.27; ALKALINE PHOSPHATASE 66 IU/L (42-121); AMYLASE 58 U/L (11-123); ANION GAP 15 (8-16); ASPARTATE AMINO TRANSFERASE 21 IU/L (15-46); BILIRUBIN,INDIRECT 0.7 mg/dl (0-1.1); BILIRUBIN,TOTAL 0.7 mg/dl (0.2-1.3); BLOOD UREA NITROGEN 13 mg/dl (7-20); CARBON DIOXIDE 27 mmol/L (21-31); CHLORIDE 104 mmol/L (97-110); CREATININE 0.92 mg/dl (0.61-1.24); ETHANOL < 10.0 mg/dl; GLUCOSE 163 mg/dl (70-220); LIPASE 63 U/L (23-300); POTASSIUM 3.3 mmol/L (3.5-5.1); SODIUM 143 mmol/L (135-144); TOTAL PROTEIN 7.5 g/dl (6.1-8.1)
[2017-08-22 11:13] LABS: ADD UMIC YES; UR ASCORBIC ACID NEGATIVE (NEGATIVE); UR BILIRUBIN (Dip) NEGATIVE (NEGATIVE); UR BLOOD (Dip) NEGATIVE (NEGATIVE); UR CLARITY CLEAR (CLEAR); UR COLOR YELLOW (YELLOW); UR GLUCOSE (Dip) NEGATIVE (NEGATIVE); UR KETONES (Dip) 1+ mg/dL (NEGATIVE); UR LEUKOCYTE ESTERASE (Dip) NEGATIVE Leu/ul (NEGATIVE); UR MUCUS FEW /HPF (NONE SEEN); UR NITRITE (Dip) NEGATIVE (NEGATIVE); UR RBC 0 /HPF (0-5); UR SPECIFIC GRAVITY (Dip) 1.017 (1.003-1.030); UR TOTAL PROTEIN (Dip) 2+ mg/dl (NEGATIVE); UR UROBILINOGEN (Dip) NEGATIVE (NEGATIVE); UR WBC 1 /HPF (0-5)
[2017-08-22 11:41] LABS: COCAINE Positive (NEGATIVE)
[2017-08-22 11:46] LABS: TROPONIN-I < 0.012 ng/ml (0.000-0.120)
[2017-08-22 11:54] LABS: BARBITURATES Negative (NEGATIVE); BENZODIAZEPINES Positive (NEGATIVE); CANNABINOIDS Negative (NEGATIVE); OPIATES Positive (NEGATIVE)
[2017-08-22] MEDS: POTASSIUM CHLORIDE (SR) 20 MEQ TAB PO (12:02)
[2017-08-22 12:04] LABS: AMPHETAMINE/METHAMPHETAMINE POSITIVE (NEGATIVE)
[2017-08-22] MEDS: LORAZEPAM 2 MG INJ IV ×2 (14:21→16:29)
[2017-08-22] MEDS: LORAZEPAM 1 MG TAB PO (15:00)
[2017-08-22] MEDS: OLANZAPINE (ODT) 5 MG TAB ODT (15:00)
== END 2017-08-22 20:41 ==
LOC: E/R 20:41
DX: F11.10 Opioid abuse, uncomplicated (principal); F15.10 Other stimulant abuse, uncomplicated; F13.10 Sedative, hypnotic or anxiolytic abuse, uncomplicated; F14.10 Cocaine abuse, uncomplicated; I25.10 Atherosclerotic heart disease of native coronary artery without angina pectoris; I10 Essential (primary) hypertension; R10.84 Generalized abdominal pain; Z79.4 Long term (current) use of insulin
CPT/HCPCS: 76705; 80053; 80307; 81001; 82150; 82962; 83690; 84484; 85025; 85610; 85730; 93005; 96374; 96375; 96376; 99285-25

== ENCOUNTER 2017-09-17 14:08 | Emergency (ER) | payer MEDICAID ==
[2017-09-17 19:08] LABS: BARBITURATES Negative (NEGATIVE); CANNABINOIDS Negative (NEGATIVE); COCAINE Negative (NEGATIVE); OPIATES Negative (NEGATIVE)
[2017-09-17 19:09] LABS: BENZODIAZEPINES Positive (NEGATIVE)
[2017-09-17 19:18] LABS: AMPHETAMINE/METHAMPHETAMINE POSITIVE (NEGATIVE)
== END 2017-09-17 21:00 | disposition home or self-care (01) ==
LOC: E/R 14:08
DX: F15.10 Other stimulant abuse, uncomplicated (principal); I10 Essential (primary) hypertension; E11.9 Type 2 diabetes mellitus without complications; Z79.4 Long term (current) use of insulin
CPT/HCPCS: 80307; 99283

== ENCOUNTER 2017-09-17 23:20 | Emergency (ER) | payer MEDICAID ==
[2017-09-18 00:32] LABS: ADD MAN DIFF? NO
[2017-09-18 00:34] LABS: WHITE BLOOD COUNT 3.5 10^3/ul (4.8-10.8)
[2017-09-18 00:34] LABS: BASOPHILS % 1.1 % (0.0-2.0); EOSINOPHILS # 0.1 10^3/ul (0.0-0.5); EOSINOPHILS % 2.8 % (0.0-7.0); HEMATOCRIT 34.7 % (42.0-52.0); LYMPHOCYTES # 1.6 10^3/ul (0.8-2.9); LYMPHOCYTES % 46.3 % (15.0-51.0); MEAN CORPUSCULAR HEMOGLOBIN 27.5 pg (29.0-33.0); MEAN CORPUSCULAR HGB CONC 31.7 g/dl (32.0-37.0); MEAN CORPUSCULAR VOLUME 86.8 fl (82.0-101.0); MEAN PLATELET VOLUME 11.3 fl (7.4-10.4); MONOCYTE # 0.5 10^3/ul (0.3-0.9); MONOCYTES % 14.4 % (0.0-11.0); NEUTROPHIL # 1.3 10^3/ul (1.6-7.5); NEUTROPHILS % 35.4 % (39.0-77.0); PLATELET COUNT 317 10^3/UL (140-415); RED CELL DISTRIBUTION WIDTH 15.2 % (11.5-14.5)
[2017-09-18 00:51] LABS: ALANINE AMINOTRANSFERASE 21 IU/L (13-69); ALBUMIN 4.1 g/dl (3.3-4.9); ALBUMIN/GLOBULIN RATIO 1.32; ALKALINE PHOSPHATASE 61 IU/L (42-121); ANION GAP 10 (8-16); ASPARTATE AMINO TRANSFERASE 22 IU/L (15-46); BILIRUBIN,INDIRECT 0.6 mg/dl (0-1.1); BILIRUBIN,TOTAL 0.6 mg/dl (0.2-1.3); BLOOD UREA NITROGEN 15 mg/dl (7-20); CALCIUM 9.2 mg/dl (8.4-10.2); CARBON DIOXIDE 28 mmol/L (21-31); CHLORIDE 107 mmol/L (97-110); CREATININE 0.79 mg/dl (0.61-1.24); GLUCOSE 307 mg/dl (70-220); POTASSIUM 3.5 mmol/L (3.5-5.1); SODIUM 141 mmol/L (135-144); TOTAL PROTEIN 7.2 g/dl (6.1-8.1)
[2017-09-18] MEDS: traMADol 50 MG TAB PO (01:00)
[2017-09-18 01:13] LABS: ACETAMINOPHEN < 10.0 ug/ml (10.0-30.0); ETHANOL < 10.0 mg/dl; SALICYLATE < 1.0 mg/dl (5.0-30.0)
[2017-09-18] MEDS: LORAZEPAM 1 MG TAB PO ×2 (03:05→03:30)
[2017-09-18] MEDS: DIPHENHYDRAMINE 50 MG CAP PO (03:30)
[2017-09-18] MEDS ORDERED: HALOPERIDOL 5 MG TAB PO (03:30)
[2017-09-18] MEDS ORDERED: LIDOCAINE 5% PATCH TD (13:30)
[2017-09-18] MEDS ORDERED: HYDROCODONE/APAP (5/325) TAB PO (18:00)
[2017-09-18] MEDS: HYDROCODONE/APAP (10/325) TAB PO (18:06)
[2017-09-18] MEDS: NIFEdipine (XL) 60 MG TAB PO (18:16)
== END 2017-09-19 07:36 ==
LOC: E/R 09-19 07:36
DX: R45.850 Homicidal ideations (principal); D64.9 Anemia, unspecified; D69.6 Thrombocytopenia, unspecified; I10 Essential (primary) hypertension; E11.9 Type 2 diabetes mellitus without complications; Z79.4 Long term (current) use of insulin
CPT/HCPCS: 36415; 80053; 80307; 85025; 99285-25

== ENCOUNTER 2018-01-19 22:39 | Emergency (ER) | payer OTHER, MEDICAID ==
[2018-01-19] MEDS: SOD CHLORIDE 0.9% 1,000 ML IV (23:02)
[2018-01-19] MEDS: NITROGLYCERIN 2% 1 GM OINT PKT TD (23:03)
[2018-01-19 23:05] LABS: ADD MAN DIFF? NO
[2018-01-19 23:06] LABS: WHITE BLOOD COUNT 3.3 10^3/ul (4.8-10.8)
[2018-01-19 23:06] LABS: ABNORMAL IP MESSAGE 1; BASOPHILS % 0.6 % (0.0-2.0); EOSINOPHILS # 0.1 10^3/ul (0.0-0.5); EOSINOPHILS % 2.7 % (0.0-7.0); HEMATOCRIT 39.7 % (42.0-52.0); HEMOGLOBIN 12.2 g/dl (14.0-18.0); LYMPHOCYTES # 1.9 10^3/ul (0.8-2.9); LYMPHOCYTES % 57.8 % (15.0-51.0); MEAN CORPUSCULAR HEMOGLOBIN 24.4 pg (29.0-33.0); MEAN CORPUSCULAR HGB CONC 30.7 g/dl (32.0-37.0); MEAN CORPUSCULAR VOLUME 79.2 fl (82.0-101.0); MEAN PLATELET VOLUME 11.8 fl (7.4-10.4); MONOCYTE # 0.3 10^3/ul (0.3-0.9); MONOCYTES % 9.1 % (0.0-11.0); NEUTROPHILS % 29.5 % (39.0-77.0); PLATELET COUNT 256 10^3/UL (140-415); POSITIVE DIFF @See below; RED BLOOD COUNT 5.01 10^6/ul (4.70-6.10); RED CELL DISTRIBUTION WIDTH 14.7 % (11.5-14.5)
[2018-01-20 00:06] LABS: ALANINE AMINOTRANSFERASE 22 IU/L (13-69); ALKALINE PHOSPHATASE 84 IU/L (42-121); ANION GAP 11 (5-13); ASPARTATE AMINO TRANSFERASE 15 IU/L (15-46); BILIRUBIN,INDIRECT 0.1 mg/dl (0-1.1); BILIRUBIN,TOTAL 0.1 mg/dl (0.2-1.3); BLOOD UREA NITROGEN 15 mg/dl (7-20); CALCIUM 9.2 mg/dl (8.4-10.2); CARBON DIOXIDE 26 mmol/L (21-31); CHLORIDE 101 mmol/L (97-110); CREATININE 0.83 mg/dl (0.61-1.24); Estimated GFR > 60 mL/min (>60); GLUCOSE 372 mg/dl (70-220); POTASSIUM 3.5 mmol/L (3.5-5.1); SODIUM 138 mmol/L (135-144); TOTAL PROTEIN 6.5 g/dl (6.1-8.1)
[2018-01-20 00:18] LABS: B-TYPE NATRIURETIC PEPTIDE 170 PG/ML (0-125); TROPONIN-I < 0.012 ng/ml (0.000-0.120)
[2018-01-20] MEDS: INSULIN REGULAR, HUMAN 100 UNIT/1 ML 3ML VIAL SC (01:04)
== END 2018-01-20 01:21 | disposition home or self-care (01) ==
LOC: E/R 01-20 01:21
DX: Z02.89 Encounter for other administrative examinations (principal); I10 Essential (primary) hypertension; E11.9 Type 2 diabetes mellitus without complications; Z79.4 Long term (current) use of insulin
CPT/HCPCS: 36415; 71045; 80053; 82962; 83880; 84484; 85025; 93005; 96372; 99285-25